=== PATIENT | male | born 1960 | race African-American/Black ===

== ENCOUNTER → 2019-04-17 | Outpatient (CLI) | payer OTHER ==
[~2019-04-17] MED LIST: ASPI-650 PO; LOVA40TA2 PO; OMEP20CA9 PO; ONDA4TAB7 PO; OXYC20TA42 PO; OXYC5TAB3 PO; SUCR1TAB33 PO; WARF4TAB PO
== END | disposition home or self-care (01) ==
LOC: CFH 07:52
PROVIDERS: ATTEND Internal Medicine Cardiovascular Disease
DX: R94.31 Abnormal electrocardiogram [ECG] [EKG] (principal); R94.30 Abnormal result of cardiovascular function study, unspecified
CPT/HCPCS: 78452; 93017; A9502

== ENCOUNTER 2019-04-18 11:49 | Outpatient (CLI) | payer OTHER | END 2019-04-18 23:59 | disposition home or self-care (01) | LOC: CVU 11:49 | PROVIDERS: ATTEND Internal Medicine Cardiovascular Disease | DX: I08.1 Rheumatic disorders of both mitral and tricuspid valves (principal); R94.31 Abnormal electrocardiogram [ECG] [EKG] | CPT/HCPCS: C8929; Q9957 ==

== ENCOUNTER 2019-05-06 10:54 | Day surgery (SDC) | payer OTHER ==
[~2019-05-06] VITALS: Ht 191.8 cm; Wt 112.7 kg
[2019-05-06] MEDS ORDERED: PLEASE ENTER HEIGHT AND WEIGHT MC SCH (12:00)
[2019-05-06] MEDS ORDERED: SODIUM BICARBONATE 8.4% 150 MEQ in DEXTROSE 5% 1,000 ML IV SCH (12:00)
[2019-05-06 12:02] LABS: BASOPHILS # (AUTO) 0.06 x10^3/uL (0-0.1); BASOPHILS % (AUTO) 1 % (0-1); EOSINOPHILS # (AUTO) 0.23 x10^3/uL (0-0.4); EOSINOPHILS % (AUTO) 5 % (1-7); LYMPHOCYTES # (AUTO) 1.37 x10^3/uL (1-3.4); LYMPHOCYTES % (AUTO) 27 % (22-44); MD NO; MEAN CORPUSCULAR HEMOGLOBIN 30.9 pg (27.5-34.5); MEAN CORPUSCULAR VOLUME 93.5 fL (81-97); MEAN PLATELET VOLUME 7.8 fL (7.4-10.4); MONOCYTES # (AUTO) 0.27 x10^3/uL (0.2-0.8); MONOCYTES % (AUTO) 5 % (2-9); NEUTROPHILS # (AUTO) 3.12 x10^3/uL (1.8-6.8); NEUTROPHILS % (AUTO) 62 % (42-75); PLATELET COUNT 139 x10^3/uL (130-400); RED BLOOD COUNT 5.52 x10^6/uL (4.38-5.82); RED CELL DISTRIBUTION WIDTH 14.8 % (9.4-14.8)
[2019-05-06 12:03] VITALS: BP 161/100
[2019-05-06 12:13] LABS: ANION GAP 7 mmol/L (5-15); CHLORIDE 107 mmol/L (98-107)
[2019-05-06 12:15] LABS: CREATININE 1.22 mg/dL (0.7-1.3)
[2019-05-06] MEDS ORDERED: MIDAZOLAM 1 MG/ML, 5ML ONE (13:45)
[2019-05-06] MEDS ORDERED: FENTANYL PF 100 MCG/2ML ONE (13:45)
[2019-05-06] MEDS ORDERED: VERAPAMIL 2.5 MG/ML, 2ML ONE (13:45)
[2019-05-06] MEDS ORDERED: BIVALIRUDIN 250 MG ONE (13:46)
[2019-05-06] MEDS ORDERED: LIDOCAINE 2%, 20ML ONE (13:46)
[2019-05-06] MEDS ORDERED: HEPARIN 1,000 UNITS/ML, 10ML ONE (13:46)
== END 2019-05-06 17:05 | disposition home or self-care (01) ==
LOC: CACL 10:54
PROVIDERS: ATTEND Internal Medicine Cardiovascular Disease
DX: I25.10 Atherosclerotic heart disease of native coronary artery without angina pectoris (principal); I25.84 Coronary atherosclerosis due to calcified coronary lesion; I25.83 Coronary atherosclerosis due to lipid rich plaque; E78.2 Mixed hyperlipidemia; I49.3 Ventricular premature depolarization; Z79.82 Long term (current) use of aspirin; Z79.899 Other long term (current) drug therapy
CPT/HCPCS: 36415; 80048; 85025; 93458; 93571; 99156; 99157; C1769; C1887; C1894; J1644; J2250; J3010; J7070; Q9967; J0583

== ENCOUNTER → 2021-04-16 | Outpatient (CLI) | payer OTHER ==
[~2021-04-16] MED LIST changes: -ASPI-650 PO; +ASPI325T20 PO; -OXYC5TAB3 PO; +OXYC5TAB98 PO
[2021-04-16 11:40] LABS: ALANINE AMINOTRANSFERASE 41 U/L (12-78); ALBUMIN 3.8 g/dL (3.4-5.0); ANION GAP 2 mmol/L (5-15); CHLORIDE 109 mmol/L (98-107); CREATININE 1.13 mg/dL (0.7-1.3)
[2021-04-16 11:42] LABS: ALKALINE PHOSPHATASE 127 U/L (45-117); BILIRUBIN,TOTAL 1.1 mg/dL (0.2-1.0); CHOL/HDL RATIO 2.5; CHOLESTEROL, TOTAL 155 mg/dL (140-239); HDL CHOL % 40 % (26-37); HDL CHOLESTEROL (DIRECT) 62 mg/dL (40-60); LDL CHOLESTEROL,CALCULATED 83 mg/dL (54-169); LDL/HDL RATIO 1.3 (0.5-3.0); TOTAL PROTEIN 7.2 g/dL (6.4-8.2); TRIGLYCERIDES 48 mg/dL (50-200); VLDL CHOLESTEROL 10 mg/dL (0-25)
== END | disposition home or self-care (01) ==
LOC: LAB 11:09
PROVIDERS: ATTEND Internal Medicine Cardiovascular Disease
DX: I25.10 Atherosclerotic heart disease of native coronary artery without angina pectoris (principal); E78.2 Mixed hyperlipidemia; I49.3 Ventricular premature depolarization; R94.31 Abnormal electrocardiogram [ECG] [EKG]
CPT/HCPCS: 36415; 80053; 80061